=== PATIENT | female | born 1980 | race Caucasian/White ===

== ENCOUNTER 2016-10-20 14:43 | Emergency (ER) | payer SELFPAY ==
--- NOTE | 2016-10-20 15:39 | XRay Report ---
ROUTINE CHEST, TWO VIEWS: History: Shortness of breath. PA and lateral views demonstrate the heart and mediastinal contour to be of normal size and shape. The lungs are clear and fully expanded and the soft tissues and bony structures are normal. IMPRESSION: Normal study.
[2016-10-20 15:50] LABS: Basophils % (Auto) 0.5 % (0.0-1.8); Hemoglobin 13.6 gm/dl (10.1-14.3); Mean Corpuscular HGB Conc 34 % (30-34); Mean Corpuscular Hemoglobin 32 pg (28-32); Mean Corpuscular Volume 93 fl (79-97); Platelet Count 203 K/mm3 (140-440); Red Blood Count 4.32 M/mm3 (3.65-5.03); White Blood Count 7.9 K/mm3 (4.5-11.0)
[2016-10-20 16:09] LABS: Anion Gap 18 mmol/L; BUN/Creatinine Ratio 14.28; Blood Urea Nitrogen 10 mg/dL (7-17); Calcium 9.1 mg/dL (8.4-10.2); Carbon Dioxide 22 mmol/L (22-30); Chloride 99.7 mmol/L (98-107); Glucose 136 mg/dL (65-100); Potassium 3.6 mmol/L (3.6-5.0); Sodium 136 mmol/L (137-145)
--- NOTE | 2016-10-20 20:35 | Emergency Department Report ---
HPI - General Chief Complaint: Dyspnea/Respdistress Time Seen by Provider: 10/20/16 20:19 - HPI HPI: This is a 36-year-old female presents to the emergency Department with a 24-hour history of shortness of breath. Patient also has some pain to the left side of her rib cage and chest wall. She has a past medical history only of for vaginal deliveries, but none recent. She has not taken anything for symptoms prior to presentation. No recent travel or sick contacts at home. She denies any history of PR, CVA, PE/DVT. She denies smoking or any illicit drug use. She uses [facility] for PCP. ED Past Medical Hx - Past Medical History Previous Medical History?: Yes Additional medical history: Vaginal delivery x 4 - Surgical History Past Surgical History?: No - Social History Smoking Status: Never Smoker Substance Use Type: None - Medications Home Medications: Home Medications Medication Instructions Recorded Confirmed Last Taken Type ALBUTEROL Inhaler [ProAir HFA 2 puff IH QID PRN #1 inhalation 10/20/16 Unknown Rx Inhaler] predniSONE [Deltasone] 20 mg PO QDAY #4 tab 10/20/16 Unknown Rx ED Review of Systems ROS: Stated complaint: SOB/TACHYCARDIA Other details as noted in HPI Comment: All other systems reviewed and negative Constitutional: denies: chills, fever Eyes: denies: eye pain, eye discharge, vision change ENT: denies: ear pain, throat pain Respiratory: shortness of breath, wheezing Cardiovascular: chest pain. denies: palpitations Gastrointestinal: denies: abdominal pain, nausea, diarrhea Genitourinary: denies: urgency, dysuria, discharge Musculoskeletal: denies: back pain, joint swelling, arthralgia Skin: denies: rash, lesions Neurological: denies: headache, weakness, paresthesias Physical Exam - Physical Exam Vital Signs: Vital Signs 10/20/16 10/20/16 10/20/16 14:46 19:53 20:00 Temperature 98 F Pulse Rate 134 H 96 H Respiratory 22 22 22 Rate Blood Pressure 138/82 125/59 O2 Sat by Pulse 100 96 Oximetry Physical Exam: GENERAL: The patient is well-developed well-nourished. HEENT: Normocephalic. Atraumatic. Extraocular motions are intact. Patient has moist mucous membranes. Pupils equal reactive to light bilaterally. NECK: Supple. Trachea is midline. CHEST/LUNGS: Patient has mild to moderate wheezing throughout the chest. No cough heard during examination. Mild tachypnea without accessory muscle use. There is no respiratory distress noted. HEART/CARDIOVASCULAR: Regular. There is mild tachycardia. There is no gallop rub or murmur. ABDOMEN: Abdomen is soft, nontender. Patient has normal bowel sounds. There is no abdominal distention. SKIN: Skin is warm and dry. NEURO: The patient is awake, alert, and oriented. The patient is cooperative. The patient has no focal neurologic deficits. The patient has normal speech. MUSCULOSKELETAL: There is no tenderness or deformity. There is no limitation range of motion. There is no evidence of acute injury. ED Course Vital Signs 10/20/16 10/20/16 10/20/16 14:46 19:53 20:00 Temperature 98 F Pulse Rate 134 H 96 H Respiratory 22 22 22 Rate Blood Pressure 138/82 125/59 O2 Sat by Pulse 100 96 Oximetry ED Medical Decision Making - Lab Data Result diagrams: 10/20/16 15:38 10/20/16 15:38 - EKG Data -: EKG Interpreted by Me EKG shows normal: sinus rhythm, axis, intervals, QRS complexes, ST-T waves Rate: tachycardia (109 bpm) - EKG Data When compared to previous EKG there are: previous EKG unavailable Interpretation: other (Sinus Tach at 109 bpm) - Radiology Data Radiology results: image reviewed interpreted by me: Chest x-ray did not show any acute process. Heart is normal shape and size. No effusions. No pneumothorax. No signs of pneumonia seen. - Medical Decision Making 36-year-old female presents to the emergency department with complaint of shortness of breath for the past 24 hours. She also has 1 or 2 distinct areas of tenderness to the rib cage. Patient's wheezing is audible without auscultation but she does not appear to be in respiratory distress. A chest x- ray was done that does not show any pleural effusion, pneumonia, pneumothorax or any acute process. Patient's labs are unremarkable including negative troponins 2 and a negative d-dimer. EKG does not show any signs of ST elevation PR, ischemia or dysrhythmia. Patient was given Solu-Medrol and breathing treatments and upon reevaluation she is feeling much better. The wheezing is completely resolved and there is no further tachypnea. The patient' s is not bedside and says that this seems to have every year when the pollen acts up. There may be some environmental allergies but patient has some bronchospasm. She'll be treated for a few days of steroids and given an inhaler and encouraged to follow up with her primary care doctor for further evaluation and follow-up. She understands and agrees to plan. - Differential Diagnosis bronchospasm, asthma, pneumonia, CHF, PE Critical Care Time: No Critical care attestation.: If time is entered above; I have spent that time in minutes in the direct care of this critically ill patient, excluding procedure time. ED Disposition Clinical Impression: Bronchospasm, Shortness of breath Disposition: DISCHARGED TO HOME OR SELFCARE Is pt being admited?: No Condition: Stable Instructions: Bronchospasm (ED), Dyspnea (ED) Additional Instructions: Please follow-up with your primary care doctor the next few days. Return to the emergency department with any worsening of your symptoms or any acute distress. Prescriptions: ALBUTEROL Inhaler [ProAir HFA Inhaler] 2 puff IH QID PRN #1 inhalation PRN Reason: Shortness Of Breath predniSONE [Deltasone] 20 mg PO QDAY #4 tab Referrals: PRIMARY CARE, [Primary Care Provider] - 3-5 Days Time of Disposition: 22:11 Print Language: FINNISH
[2016-10-20] MEDS ORDERED: ATROVENT IH ONE (20:40)
[2016-10-20] MEDS ORDERED: PROVENTIL IH ONE (20:40)
[2016-10-20 22:18] VITALS: BP 110/59
== END 2016-10-20 22:25 | disposition home or self-care (01) ==
LOC: ED 14:43
DX: J98.01 Acute bronchospasm (principal); R06.02 Shortness of breath
CPT/HCPCS: 36415; 71020; 80048; 84484; 85025; 85379; 94644; 96374; 99284; J2930